=== PATIENT | female | born 1975 | race African-American/Black ===

== ENCOUNTER 2022-06-08 03:08 | Emergency (ER) | payer SELFPAY | END 2022-06-08 03:37 | disposition home or self-care (01) | LOC: CSHERS 03:08 | DX: K03.81 Cracked tooth (principal) | CPT/HCPCS: 64400; 96372 ==

== ENCOUNTER 2023-04-16 18:32 | Emergency (ER) | payer BC ==
[2023-04-16] MEDS ORDERED: Ibuprofen 200 MG TAB ONE (19:16)
== END 2023-04-16 20:00 | disposition home or self-care (01) ==
LOC: CSHERS 18:32
DX: S93.402A Sprain of unspecified ligament of left ankle, initial encounter (principal); W18.42XA Slipping, tripping and stumbling without falling due to stepping into hole or opening, initial encounter